=== PATIENT | male | born 1980 | race Caucasian/White ===

== ENCOUNTER 2020-09-26 18:53 | Emergency (ER) | payer SELFPAY ==
[~2020-09-26] VITALS: Ht 177.8 cm; Wt 117.9 kg
--- NOTE | 2020-09-26 18:53 | NUR ---
Patient BIBA BLS, transferred to bed 6. RN evaluating the patient at bedside.
--- NOTE | 2020-09-26 18:54 | NUR ---
Dr. Kendall is evaluating the patient at bedside.
[2020-09-26 18:55] VITALS: BP 155/108
[2020-09-26] MEDS ORDERED: LIDOCAINE/EPI 1% 1:100000 20 ML VIAL INJ ONE (19:05)
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
--- NOTE | 2020-09-26 19:35 | NUR ---
DR. HURST AT BEDSIDE. SUTURING IN PROGRESS
[2020-09-26] MEDS ORDERED: BACITRACIN OINT 500 UNITS/GM PKT TP ONE (19:46)
--- NOTE | 2020-09-26 20:16 | NUR ---
Patient discharged with v/s stable. Written and verbal after care instructions given and explained. Patient verbalized understanding. Ambulatory with steady gait. All questions addressed prior to discharge. Advised to follow up with PMD.
[2020-09-26 20:19] VITALS: BP 148/89
== END 2020-09-26 20:16 | disposition home or self-care (01) ==
LOC: MED 18:53
DX: S01.112A Laceration without foreign body of left eyelid and periocular area, initial encounter (principal); Y04.8XXA Assault by other bodily force, initial encounter; Y93.89 Activity, other specified; Y92.89 Other specified places as the place of occurrence of the external cause; Y99.8 Other external cause status
CPT/HCPCS: 12013; 90471; 90715; 99283; J2001